=== PATIENT | female | born 1985 ===

== ENCOUNTER 2017-07-01 21:03 | Emergency (ER) | payer OTHER ==
[2017-07-01 21:04] VITALS: BMI 25.0
[2017-07-01 21:40] LABS: HCG,QUALITATIVE URINE POSITIVE (NEGATIVE)
[2017-07-01 21:43] LABS: SQUAMOUS EPITHIAL 2 /hpf (0-5); URINE BACTERIA RARE (<OCC); URINE BILIRUBIN NEGATIVE (NEGATIVE); URINE BLOOD 3+ (NEGATIVE); URINE CLARITY Clear (Clear); URINE COLOR Colorless (YELLOW); URINE GLUCOSE (UA) NORMAL (Normal); URINE LEUKOCYTE ESTERASE 2+ Leu/uL (Negative); URINE NITRATE NEGATIVE (NEGATIVE); URINE PROTEIN NEGATIVE (NEGATIVE); URINE UROBILINOGEN NORMAL mg/dL (0.2-1.0)
[2017-07-01 22:16] LABS: BASO % 0.3 % (0.0-2.0); EOS # 0.2 K/uL (0.0-0.7); EOS % 2.1 % (0.0-4.0); HEMOGLOBIN 12.8 g/dL (11.0-16.0); LYMPH # 2.2 K/uL (1.0-4.3); LYMPH % 24.6 % (20.0-40.0); MEAN CELL VOLUME 86.6 fL (81.0-99.0); MEAN CORPUSCULAR HEMOGLOBIN 29.6 pg (27.0-31.0); MEAN CORPUSCULAR HGB CONC 34.2 g/dL (33.0-37.0); MEAN PLATELET VOLUME 8.9 fL (7.2-11.7); MONO # 0.6 K/uL (0.0-0.8); MONO % 6.2 % (0.0-10.0); NEUT % 66.8 % (50.0-75.0); NRBC % 0.1 % (0.0-2.0); RBC 4.32 Mil/uL (3.80-5.20); RED CELL DISTRIBUTION WIDTH 12.4 % (11.5-14.5)
[2017-07-01 22:27] LABS: ALB/GLOB RATIO 1.2 (1.0-2.1); ALBUMIN 3.6 g/dL (3.5-5.0); ALT/SGPT 45 U/L (9-52); AST/SGOT 27 U/L (14-36); BLOOD UREA NITROGEN 15 mg/dL (7-17); CALCIUM 8.7 mg/dl (8.6-10.4); GFR AFRICAN-AMERICAN > 60; GFR NON-AFRICAN AMERICAN > 60
--- NOTE | 2017-07-01 23:04 | US ---
EXAM: US After First Trimester, Transabdominal CLINICAL HISTORY: 32 years old, female; Signs and symptoms; Lmp or gestational age (in weeks): 03-27-2017; Other: Vag bleed; ; Additional info: Vag bleed, pregnan TECHNIQUE: Real-time transabdominal obstetrical ultrasound of the maternal pelvis and a second or third trimester with image documentation. COMPARISON: No relevant prior studies available. FINDINGS: Fetus: Single live intrauterine gestation. Heart rate: heart rate of 148 beats per minute. Presentation: Transverse. Placenta: Posterior. No placental abruption. Amniotic fluid: Normal. Anatomy: No gross anomaly is appreciated. BIOMETRICS Gestational age by US: Estimated gestational age of 14 weeks 1 day by measurements. EFW: Estimated weight of 89 g. BPD: 2.5 cm, correlating with 14 weeks 1 day. HC: 9.6 cm, correlating with 14 weeks 3 days. AC: 8.0 cm, correlating with 14 weeks 3 days. FL: 1.3 cm, correlating with 13 weeks 5 days. MATERNAL: Uterus: 1.9 x 1.4 x 1.9 cm uterine mass. Cervix: No cervical dilatation or effacement. Adnexa: RIGHT ovary: 2.1 x 1.6 x 2.1 cm anechoic lesion. LEFT ovary: Not visualized. No adnexal masses. Free fluid: No significant free fluid. IMPRESSION: 1. Single live intrauterine gestation. 2. Probable fibroid. 3. RIGHT ovarian cyst.
[2017-07-01 23:05] VITALS: BP 113/75; PULSE 81; RESP 20; TEMP 98.3; O2SAT 99
--- NOTE | 2017-07-01 23:41 | C.PDOC ---
History Of Present Illness 32 year old female 14 weeks presents to the ED c/o lower abdominal pain , and vaginal spotting for the past 3 days. Patient reports she has also been experiencing cramping of the lower abdomen radiating to her back. Patient denies nausea, vomit, fever, chills, diarrhea, vaginal bleeding, dyruia, hematuria. Time Seen by Provider: 07/01/17 21:52 Chief Complaint (Nursing): Female Genitourinary History Per: Patient History/Exam Limitations: no limitations Onset/Duration Of Symptoms: Days Current Symptoms Are (Timing): Still Present Quality Of Discomfort: Cramping Associated Symptoms: Back Pain Recent travel outside of the [place]: No Additional History Per: Patient Abnormal Vaginal Bleeding: No Past Medical History Reviewed: Historical Data, Nursing Documentation, Vital Signs Vital Signs: Last Vital Signs Temp 98.3 F 07/01/17 21:24 Pulse 81 07/01/17 21:24 Resp 20 07/01/17 23:54 BP 113/75 07/01/17 21:24 Pulse Ox 99 07/02/17 05:42 - Medical History PMH: Asthma Surgical History: No Surg Hx Family History: States: Unknown Family Hx - Social History Hx Tobacco Use: No Hx Alcohol Use: No Hx Substance Use: No - Immunization History Hx Tetanus Toxoid Vaccination: Yes Hx Influenza Vaccination: No Hx Pneumococcal Vaccination: No Review Of Systems Constitutional: Negative for: Fever, Chills Cardiovascular: Negative for: Chest Pain Respiratory: Negative for: Cough, Shortness of Breath Gastrointestinal: Positive for: Abdominal Pain. Negative for: Nausea, Vomiting Genitourinary: Negative for: Dysuria, Hematuria Musculoskeletal: Positive for: Back Pain Skin: Negative for: Rash Neurological: Negative for: Weakness, Numbness Physical Exam - Physical Exam Appears: Non-toxic, No Acute Distress Skin: Normal Color, Warm, Dry Head: Atraumatic, Normacephalic Eye(s): bilateral: Normal Inspection Nose: No Discharge, No Deformity Oral Mucosa: Moist Neck: Normal ROM, Supple Chest: Symmetrical Cardiovascular: Rhythm Regular, No Murmur Respiratory: Normal Breath Sounds, No Rales, No Rhonchi, No Wheezing Gastrointestinal/Abdominal: Soft, No Tenderness, No Guarding, No Rebound Extremity: Normal ROM, No Pedal Edema, No Calf Tenderness, No Deformity, No Swelling Neurological/Psych: Oriented x3, Normal Speech, Normal Cognition Gait: Steady ED Course And Treatment - Laboratory Results Result Diagrams: 07/01/17 22:10 07/01/17 22:10 O2 Sat by Pulse Oximetry: 99 (On RA) Pulse Ox Interpretation: Normal - CT Scan/US US obstetrics Other Rad Studies (CT/US): Read By Radiologist, Radiology Report Reviewed CT/US Interpretation: This imaging exam was performed at [facility]. EXAM : US After First Trimester, Transabdominal. . CLINICAL HISTORY: 32 years old, female; Signs and symptoms; Lmp or gestational age (in weeks): ; Other: Vag bleed; ; Additional info: Vag bleed, pregnan. . TECHNIQUE: Real-time transabdominal obstetrical ultrasound of the maternal pelvis and a. second or third trimester with image documentation. . COMPARISON: No relevant prior studies available. . FINDINGS: Fetus: Single live intrauterine gestation. Heart rate: heart rate of 148 beats per minute. Presentation: Transverse. Placenta: Posterior. No placental abruption. Amniotic fluid: Normal. Anatomy: No gross anomaly is appreciated. . BIOMETRICS. Gestational age by US: Estimated gestational age of 14 weeks 1 day by. measurements. EFW: Estimated weight of 89 g. BPD : 2.5 cm, correlating with 14 weeks 1 day. HC: 9.6 cm, correlating with 14 weeks 3 days. AC: 8.0 cm, correlating with 14 weeks 3 days. FL: 1.3 cm, correlating with 13 weeks 5 days. . MATERNAL: Uterus: 1.9 x 1.4 x 1.9 cm uterine mass. Cervix: No cervical dilatation or effacement. Adnexa: RIGHT ovary: 2.1 x 1.6 x 2.1 cm anechoic lesion. LEFT ovary: Not. visualized. No adnexal masses. Free fluid: No significant free fluid. . IMPRESSION: 1. Single live intrauterine gestation. 2. Probable fibroid. 3. RIGHT ovarian cyst. Medical Decision Making Medical Decision Making: Plan: * UA * Labs * US obstetrics On re-exam, the patient perptdop ts improvemenr in the ED. Lungs are CTA, heart is RRR, abdomen is soft, non-tender and the patient is tolerating PO well. Follow up with the medical doctor within 1-2 days . Return if worsened. Disposition - Disposition Referrals: [facility] [Outside] [facility] [Outside] Disposition: HOME/ ROUTINE Disposition Time: 23:39 Condition: GOOD Additional Instructions: Follow up with your OBGYN/clinic in 1-2 days without fail for further evaluation. Take medications as prescribed. Return to the emergency department at any time if symptoms persist or worsen. Prescriptions: Nitrofurantoin Macrocrystals [Macrobid] 1 cap PO BID #14 cap Instructions: Threatened Miscarriage (ED), Urinary Tract Infection in Women (ED ) Forms: [employer] (Yemeni) - Clinical Impression Clinical Impression: Urinary tract infection, Threatened - PA / DESIGN CONSULTANT / Resident Statement MD/DO has reviewed & agrees with the documentation as recorded. - Scribe Statement The provider has reviewed the documentation as recorded by the Scribe Ronaldo Childers All medical record entries made by the Scribe were at my direction and personally dictated by me. I have reviewed the chart and agree that the record accurately reflects my personal performance of the history, physical exam, medical decision making, and the department course for this patient. I have also personally directed, reviewed, and agree with the discharge instructions and disposition.
== END 2017-07-01 23:54 | disposition home or self-care (01) ==
LOC: C.ER 21:03
DX: O20.0 Threatened abortion (principal); O23.41 Unspecified infection of urinary tract in pregnancy, first trimester; Z3A.14 14 weeks gestation of pregnancy

== ENCOUNTER 2017-07-27 14:37 | Emergency (ER) | payer OTHER ==
[2017-07-27 14:38] VITALS: BMI 25.0
[2017-07-27 15:21] VITALS: TEMP 98.5; O2SAT 100
[2017-07-27 16:27] LABS: BASO % 0.2 % (0.0-2.0); EOS # 0.2 K/uL (0.0-0.7); HEMOGLOBIN 12.9 g/dL (11.0-16.0); LYMPH # 1.8 K/uL (1.0-4.3); LYMPH % 21.6 % (20.0-40.0); MEAN CORPUSCULAR HEMOGLOBIN 30.1 pg (27.0-31.0); MEAN CORPUSCULAR HGB CONC 34.6 g/dL (33.0-37.0); MEAN PLATELET VOLUME 9.3 fL (7.2-11.7); MONO # 0.6 K/uL (0.0-0.8); MONO % 7.3 % (0.0-10.0); NEUT # 5.7 K/uL (1.8-7.0); NEUT % 68.9 % (50.0-75.0); RBC 4.28 Mil/uL (3.80-5.20); WHITE BLOOD COUNT 8.3 K/uL (4.8-10.8)
[2017-07-27 16:43] LABS: SQUAMOUS EPITHIAL 15 /hpf (0-5); URINE BACTERIA RARE (<OCC); URINE BILIRUBIN NEGATIVE (NEGATIVE); URINE BLOOD NEGATIVE (NEGATIVE); URINE CLARITY Hazy (Clear); URINE COLOR Yellow (YELLOW); URINE GLUCOSE (UA) NORMAL (Normal); URINE LEUKOCYTE ESTERASE 3+ Leu/uL (Negative); URINE NITRATE NEGATIVE (NEGATIVE); URINE PROTEIN NEGATIVE (NEGATIVE); URINE UROBILINOGEN NORMAL mg/dL (0.2-1.0)
[2017-07-27 16:56] LABS: ALB/GLOB RATIO 1.1 (1.0-2.1); ALBUMIN 3.5 g/dL (3.5-5.0); ALT/SGPT 26 U/L (9-52); AST/SGOT 22 U/L (14-36); BLOOD UREA NITROGEN 14 mg/dL (7-17); CALCIUM 9.1 mg/dl (8.6-10.4); GFR AFRICAN-AMERICAN > 60; GFR NON-AFRICAN AMERICAN > 60
--- NOTE | 2017-07-27 18:28 | US ---
PROCEDURE: Limited ultrasound HISTORY: Right pelvic pain. COMPARISON: 07/01/2017. TECHNIQUE: Standard protocol for this study/examination. FINDINGS: Cephalic presentation. Posterior Placenta. Low lying approximately 2 cm from the cervical os Gestational age derived from LMP 17 weeks 3 days Gestational age derived from the following biometric parameters 18 weeks . ROMAIN based on LMP: 01/01/2018 ROMAIN based on biometry: 12/28/2017 adequate interval progression compared to the prior study. Biparietal diameter 4.01 cm Head [id number] cm Abdominal circumference 12.41 cm Femur length 2.62 cm Estimated weight 218.7 g Calculated cardiac rate 147 beats per min. Closed cervix measuring 3.37 cm IMPRESSION: Eighteen weeks live intrauterine gestation. Cephalic presentation. Adequate interval progression compared to the prior study. Low lying posterior placenta. Closed cervix.
--- NOTE | 2017-07-27 18:43 | C.PDOC ---
Time Seen by Provider: 07/27/17 15:19 Chief Complaint (Nursing): Abdominal Pain History Per: Patient Onset/Duration Of Symptoms: Hrs (today), Intermittent Episodes Current Symptoms Are (Timing): Better Severity: Moderate Location Of Pain/Discomfort: RLQ Quality Of Discomfort: Sharp Exacerbating Factors: None Alleviating Factors: None Additional History Per: Prior Records Abnormal Vaginal Bleeding: No Past Medical History Reviewed: Historical Data, Nursing Documentation, Vital Signs Vital Signs: Last Vital Signs Temp 98.5 F 07/27/17 15:18 Pulse 82 07/27/17 15:18 Resp 16 07/27/17 15:18 BP 115/62 07/27/17 15:18 Pulse Ox 100 07/27/17 15:18 - Medical History PMH: Asthma Other PMH: 18 weeks Surgical History: No Surg Hx Family History: States: Unknown Family Hx - Social History Hx Tobacco Use: No Hx Alcohol Use: No Hx Substance Use: No - Immunization History Hx Tetanus Toxoid Vaccination: Yes Hx Influenza Vaccination: No Hx Pneumococcal Vaccination: No Review Of Systems Except As Marked, All Systems Reviewed And Found Negative. Constitutional: Negative for: Fever Cardiovascular: Negative for: Chest Pain Respiratory: Negative for: Shortness of Breath Gastrointestinal: Negative for: Vomiting Genitourinary: Positive for: Pelvic Pain. Negative for: Dysuria, Vaginal Discharge, Vaginal Bleeding Musculoskeletal: Negative for: Neck Pain, Back Pain Skin: Negative for: Rash Neurological: Negative for: Weakness, Numbness Physical Exam - Physical Exam Appears: Non-toxic, No Acute Distress Skin: Normal Color, Warm, Dry, No Rash Head: Atraumatic, Normacephalic Eye(s): bilateral: Normal Inspection, PERRL, EOMI Neck: Normal ROM, Supple Cardiovascular: Rhythm Regular Respiratory: Normal Breath Sounds, No Accessory Muscle Use Gastrointestinal/Abdominal: Soft, No Tenderness, Other (Gravid) Back: No CVA Tenderness Extremity: Normal ROM Neurological/Psych: Oriented x3, Normal Motor, Normal Sensation ED Course And Treatment - Laboratory Results Result Diagrams: 07/27/17 16:20 07/27/17 16:20 Interpretation Of Abnormal: Possible UTI, otherwise unremarkable. Urine C&S sent. O2 Sat by Pulse Oximetry: 100 Pulse Ox Interpretation: Normal - CT Scan/US Pelvic US Other Rad Studies (CT/US): Read By Radiologist, Radiology Report Reviewed CT/US Interpretation: IMPRESSION: Eighteen weeks live intrauterine gestation. Cephalic presentation. Adequate interval progression compared to the prior study. Low lying posterior placenta. Closed cervix. Progress Note: Pain resolved. Reassessment Condition: Improved Progress - Interventions Interventions:: Observation - Medications Administered Oral: Acetaminophen - Data Reviewed Data Reviewed: Lab, Diagnostic imaging, Old records - Patient Status Patient status: Mostly improved - Continuity of Care Discussed patient case with:: Patient, ED Nurse - Patient Plan Patient Plan: Discharge, F/U with PCP Disposition Counseled Patient/Family Regarding: Studies Performed, Diagnosis, Need For Followup, Rx Given - Disposition Referrals: Deven Spencer MD [Medical Doctor] - Disposition: HOME/ ROUTINE Disposition Time: 18:47 Condition: IMPROVED Additional Instructions: Drink plenty of fluids. Follow up with your [facility] doctor within 1 week for further evaluation and treatment. Return to the ER if you develop fever, vomiting, bleeding, worsening of symptoms or if you have any other concerns. Prescriptions: Cephalexin [cephalexin] 500 mg PO BID #14 cap Instructions: Abdominal Pain in (ED), Urinary Tract Infection in (ED) - Clinical Impression Clinical Impression: UTI in , Pelvic pain during
[2017-07-27 19:11] VITALS: BP 124/79; PULSE 74; RESP 20
== END 2017-07-27 19:09 | disposition home or self-care (01) ==
LOC: C.ER 14:37
DX: O23.42 Unspecified infection of urinary tract in pregnancy, second trimester (principal); O26.892 Other specified pregnancy related conditions, second trimester; R10.2 Pelvic and perineal pain; Z3A.18 18 weeks gestation of pregnancy

== ENCOUNTER 2017-08-13 10:03 | Emergency (ER) | payer OTHER ==
[2017-08-13 10:23] VITALS: RESP 18; TEMP 98; BMI 26.6
[2017-08-13] MEDS ORDERED: Sodium Chloride 0.9% 1,000 ML IV STA (10:46)
[2017-08-13 11:22] LABS: BASO % 0.2 % (0.0-2.0); EOS # 0.2 K/uL (0.0-0.7); EOS % 1.8 % (0.0-4.0); HEMOGLOBIN 13.3 g/dL (11.0-16.0); LYMPH # 1.7 K/uL (1.0-4.3); LYMPH % 19.3 % (20.0-40.0); MEAN CELL VOLUME 86.6 fL (81.0-99.0); MEAN CORPUSCULAR HGB CONC 34.7 g/dL (33.0-37.0); MEAN PLATELET VOLUME 8.7 fL (7.2-11.7); MONO # 0.6 K/uL (0.0-0.8); MONO % 6.4 % (0.0-10.0); NEUT # 6.3 K/uL (1.8-7.0); NEUT % 72.3 % (50.0-75.0); NRBC % 0.1 % (0.0-2.0); RBC 4.43 Mil/uL (3.80-5.20); WHITE BLOOD COUNT 8.7 K/uL (4.8-10.8)
[2017-08-13 11:32] LABS: INR 0.9; PROTHROMBIN TIME 10.7 SECONDS (9.7-12.2)
[2017-08-13 11:35] LABS: ALBUMIN 3.6 g/dL (3.5-5.0); ALT/SGPT 33 U/L (9-52); AST/SGOT 21 U/L (14-36); BLOOD UREA NITROGEN 8 mg/dL (7-17); GFR AFRICAN-AMERICAN > 60; GFR NON-AFRICAN AMERICAN > 60
--- NOTE | 2017-08-13 12:11 | US ---
Indication: 19 wks , vaginal bleeding Comparison: Limited OB performed 07/27/17 Technique: Real-time ultrasound was performed through the pelvis. Findings: There is a single living fetus in footling breech presentation. Amniotic fluid volume is within normal limits. Posterior fundal placenta. The placenta is not previa. 2.6 cm sub serosal fibroid. There are no adnexal masses or cysts evident. Cervix length measures approximately 3.4 cm. The study was performed for the emergent evaluation of bleeding, and the whole anatomic survey of the fetus was not performed. Echogenic focus within the left ventricle. Measurements and calculations: Fetus has a composite sonographic age of 20 weeks, 1 day. This calculation is based on the biparietal diameter, head circumference, abdominal circumference, and femur length. Estimated heart rate 154.4 beats per min. Impression: Single living fetus in footling breech presentation with a composite sonographic age of 20 weeks 1 day. Estimated heart rate 154.4 beats per min. The study was performed for the emergent evaluation of bleeding, and the whole anatomic survey of the fetus was not performed. Echogenic focus identified within the left ventricle which can be seen in the setting of congenital anomalies. Recommend outpatient dedicated anatomy ultrasound and consultation with Maternal specialist for further evaluation. 2.6 cm subserosal fibroid. Findings discussed with SCOTT Marsh on 08/13/17 at 12:05 p.m.
[2017-08-13 13:09] VITALS: BP 116/78; PULSE 72; O2SAT 98
--- NOTE | 2017-08-13 13:30 | C.PDOC ---
History Of Present Illness 32 year old female, who is currently around 19 weeks , presents to the ED for evaluation of vaginal bleeding and pelvic cramping which occurred yesterday. Patient states she no longer has vaginal bleeding, but is still experiencing some pelvic discomfort. Patient was seen by her OBGYN and evaluated in the ED last month for the same complaint. Patient denies fever, chills, back pain, dysuria. Time Seen by Provider: 08/13/17 10:43 Chief Complaint (Nursing): Female Genitourinary History Per: Patient History/Exam Limitations: no limitations Onset/Duration Of Symptoms: Hrs Current Symptoms Are (Timing): Better Quality Of Discomfort: Cramping Associated Symptoms: denies: Fever, Chills, Back Pain Additional History Per: Patient Abnormal Vaginal Bleeding: Yes Past Medical History Reviewed: Historical Data, Nursing Documentation, Vital Signs Vital Signs: Last Vital Signs Temp 98.0 F 08/13/17 10:23 Pulse 72 08/13/17 13:08 Resp 18 08/13/17 13:08 BP 116/78 08/13/17 13:08 Pulse Ox 98 08/13/17 13:37 - Medical History PMH: Asthma Surgical History: No Surg Hx Family History: States: Unknown Family Hx - Social History Hx Tobacco Use: No Hx Alcohol Use: No Hx Substance Use: No - Immunization History Hx Tetanus Toxoid Vaccination: Yes Hx Influenza Vaccination: No Hx Pneumococcal Vaccination: No Review Of Systems Constitutional: Negative for: Fever, Chills Genitourinary: Positive for: Vaginal Bleeding, Other (pelvic cramping ). Negative for: Dysuria Musculoskeletal: Negative for: Back Pain Physical Exam - Physical Exam Appears: Non-toxic, No Acute Distress Skin: Normal Color, Warm, Dry Head: Atraumatic, Normacephalic Eye(s): bilateral: Normal Inspection Oral Mucosa: Moist Neck: Supple Chest: Symmetrical, No Deformity, No Tenderness Cardiovascular: Rhythm Regular, No Murmur Respiratory: Normal Breath Sounds, No Rales, No Rhonchi, No Wheezing Gastrointestinal/Abdominal: Soft, No Tenderness, No Guarding, No Rebound Extremity: Normal ROM, Capillary Refill (less than 2 seconds ) Neurological/Psych: Oriented x3, Normal Speech, Normal Cognition ED Course And Treatment - Laboratory Results Result Diagrams: 08/13/17 11:17 08/13/17 11:17 O2 Sat by Pulse Oximetry: 98 (on RA ) Pulse Ox Interpretation: Normal - CT Scan/US Ultrasound Other Rad Studies (CT/US): Interpreted By Me, Read By Radiologist, Radiology Report Reviewed CT/US Interpretation: Indication: 19 wks , vaginal bleeding. Comparison : Limited OB performed 07/27/17. Technique: Real-time ultrasound was performed through the pelvis. Findings: There is a single living fetus in footling breech presentation. Amniotic fluid volume is within normal limits. Posterior fundal placenta. The placenta is not previa. 2.6 cm sub serosal fibroid. There are no adnexal masses or cysts evident. Cervix length measures approximately 3.4 cm. The study was performed for the emergent evaluation of bleeding, and the whole anatomic survey of the fetus was not performed. Echogenic focus within the left ventricle. Measurements and calculations: Fetus has a composite sonographic age of 20 weeks, 1 day. This calculation is based on the biparietal diameter, head circumference, abdominal circumference, and femur length. Estimated heart rate 154.4 beats per min. Impression: Single living fetus in footling breech presentation with a composite sonographic age of 20 weeks 1 day. Estimated heart rate 154.4 beats per min. The study was performed for the emergent evaluation of bleeding, and the whole anatomic survey of the fetus was not performed. Echogenic focus identified within the left ventricle which can be seen in the setting of congenital anomalies. Recommend outpatient dedicated anatomy ultrasound and consultation with Maternal specialist for further evaluation. 2.6 cm subserosal fibroid. Findings discussed with SCOTT Marsh on 08/13/17 at 12:05 p.m. Progress Note: Bloodwork and Ultrasound ordered and reviewed. IV Fluids administered. Disposition - Disposition Disposition: HOME/ ROUTINE Disposition Time: 14:08 Condition: STABLE Additional Instructions: Follow up with your OBGYN and please do pelvic US with anatomy. Return to ED if feel worse. Instructions: Bleeding With Forms: [employer] (Hebrew), Work/School/Gym Excuse - Clinical Impression Clinical Impression: Vaginal bleeding before 22 weeks gestation - PA / TRIP RIDER / Resident Statement MD/DO has reviewed & agrees with the documentation as recorded. - Scribe Statement The provider has reviewed the documentation as recorded by the Scribe (Jennifer Adair) All medical record entries made by the Scribe were at my direction and personally dictated by me. I have reviewed the chart and agree that the record accurately reflects my personal performance of the history, physical exam, medical decision making, and the department course for this patient. I have also personally directed, reviewed, and agree with the discharge instructions and disposition.
== END 2017-08-13 14:27 | disposition home or self-care (01) ==
LOC: C.ER 10:03
DX: O46.92 Antepartum hemorrhage, unspecified, second trimester (principal); Z3A.20 20 weeks gestation of pregnancy
CPT/HCPCS: 76815; 80053; 84702; 85025; 85610; 85730; 86850; 86900; 99284; J7040

== ENCOUNTER 2018-07-27 08:44 | Emergency (ER) | payer OTHER ==
[2018-07-27 08:44] VITALS: BMI 26.6
[2018-07-27 08:54] VITALS: BP 162/68; PULSE 84; RESP 17; TEMP 98.9; O2SAT 99
--- NOTE | 2018-07-27 09:32 | C.PDOC ---
History Of Present Illness 33 y/o female presents to the ED complaining of URI symptoms and asthma exacerbation since 07/17. + Sick contacts at home with the same. Patient is complaining of persistent cough, and noticed blood-tinged sputum this morning. No chest pain. She reports occasional wheezing and is s/p nebulizer treatment x2 prior to arrival. Patient states normally she uses her treatment only when Im sick. Currently reports feeling better. Otherwise she denies any fever, chest tightness, ALVAREZ, nausea, vomiting, or diarrhea. Time Seen by Provider: 07/27/18 09:15 Chief Complaint (Nursing): Cough, Cold, Congestion History Per: Patient History/Exam Limitations: no limitations Onset/Duration Of Symptoms: Days Current Symptoms Are (Timing): Still Present Associated Symptoms: Cough, Sputum Production. denies: Fever, Chest Pain Preciptating Factors: URI Past Medical History Reviewed: Historical Data, Nursing Documentation, Vital Signs Vital Signs: Last Vital Signs Temp 98.9 F 07/27/18 08:50 Pulse 84 07/27/18 08:50 Resp 17 07/27/18 08:50 BP 162/68 H 07/27/18 08:50 Pulse Ox 99 07/27/18 08:50 - Medical History PMH: Asthma Family History: States: Unknown Family Hx - Social History Hx Tobacco Use: No Hx Alcohol Use: Yes Hx Substance Use: No - Immunization History Hx Tetanus Toxoid Vaccination: Yes Hx Influenza Vaccination: No Hx Pneumococcal Vaccination: No Review Of Systems Constitutional: Negative for: Fever, Chills ENT: Negative for: Throat Pain Cardiovascular: Negative for: Chest Pain, Palpitations Respiratory: Positive for: Cough, Hemoptysis (x1 today), Wheezing. Negative for: SOB with Excertion, Pleuritic Pain Gastrointestinal: Negative for: Nausea, Vomiting, Diarrhea Musculoskeletal: Negative for: Back Pain Neurological: Negative for: Weakness, Headache, Dizziness Physical Exam - Physical Exam Appears: Non-toxic, No Acute Distress Skin: Warm, Dry, No Rash Head: Atraumatic, Normacephalic Eye(s): bilateral: Normal Inspection, PERRL, EOMI Oral Mucosa: Moist Neck: Normal ROM Chest: Symmetrical Cardiovascular: Rhythm Regular, No Murmur Respiratory: No Rales, No Rhonchi, No Wheezing, Other (NARD, appears comfortable, speaking in full sentences) Gastrointestinal/Abdominal: Soft, No Tenderness, No Distention Extremity: Bilateral: Atraumatic, Normal Color And Temperature Pulses: Left Radial: Normal, Right Radial: Normal Neurological/Psych: Oriented x3 Gait: Steady ED Course And Treatment O2 Sat by Pulse Oximetry: 99 (RA) Pulse Ox Interpretation: Normal Medical Decision Making Medical Decision Making: Impression: URI, Asthma exacerbation Initial Plan: - Chest x-ray offered, however patient declines imaging Patient is medically stable, will d/c home with prescriptions for motrin, ventolin inhaler, albuterol nebs, tessalon perles, and prednisone. Disposition Counseled Patient/Family Regarding: Diagnosis, Need For Followup, Rx Given - Disposition Referrals: your,PMD [Other] Disposition: HOME/ ROUTINE Disposition Time: 09:27 Condition: GOOD Prescriptions: Albuterol 0.083% [Albuterol Sulfate 3 Ml] 3 ml IH Q4 #30 neb Albuterol HFA [Ventolin HFA 90 mcg/actuation (8 g)] 1 puff IH Q4 #1 inhaler Benzonatate [Tessalon Perles] 200 mg PO TID PRN #15 sgl PRN Reason: Cough Ibuprofen [Motrin] 600 mg PO Q6 #30 tab predniSONE [Prednisone] 60 mg PO DAILY #15 tab Instructions: Asthma, Adult (DC), Upper Respiratory Infection (ED) Forms: [employer] (Romansh) - Clinical Impression Clinical Impression: Bronchitis, Asthma exacerbation, mild - Scribe Statement The provider has reviewed the documentation as recorded by the Faustina Babin Provider Attestation: All medical record entries made by the Christineibsharon were at my direction and personally dictated by me. I have reviewed the chart and agree that the record accurately reflects my personal performance of the history, physical exam, medical decision making, and the department course for this patient. I have also personally directed, reviewed, and agree with the discharge instructions and disposition.
== END 2018-07-27 09:31 | disposition home or self-care (01) ==
LOC: C.ER 08:44
DX: J45.901 Unspecified asthma with (acute) exacerbation (principal)